=== PATIENT | female | born 2000 | race African-American/Black ===

== ENCOUNTER 2021-02-18 08:56 | Emergency (ER) | payer OTHER ==
[2021-02-18] MEDS ORDERED: Acetaminophen 500 MG TAB ONE (09:43)
== END 2021-02-18 10:23 | disposition home or self-care (01) ==
LOC: CSHERS 08:56
DX: O99.891 Other specified diseases and conditions complicating pregnancy (principal); R20.2 Paresthesia of skin; Z3A.37 37 weeks gestation of pregnancy
CPT/HCPCS: 93005

== ENCOUNTER 2021-03-15 14:54 | Day surgery (SDC) | payer OTHER ==
[2021-03-15] MEDS ORDERED: hydrALAZINE 20 MG/ML VIAL SLOW IVP PRN (17:44)
== END 2021-03-15 17:30 | disposition home health service (06) ==
LOC: CSHLD/OP 14:54
PROVIDERS: ATTEND Family Medicine
DX: O99.891 Other specified diseases and conditions complicating pregnancy (principal); R10.9 Unspecified abdominal pain; Z3A.36 36 weeks gestation of pregnancy
CPT/HCPCS: 99283

== ENCOUNTER 2021-04-02 12:39 | Outpatient (CLI) | payer OTHER ==
[2021-04-02 20:56] LABS: SARS-CoV-2 PCR by NAA Not Detected (NotDetected)
== END 2021-04-02 12:40 | disposition home or self-care (01) ==
LOC: CSHLAB 12:39
PROVIDERS: ATTEND Family Medicine
DX: Z20.822 Contact with and (suspected) exposure to COVID-19 (principal)
CPT/HCPCS: 87635; U0003; U0005

== ENCOUNTER 2021-04-06 19:30 | Inpatient (IN) | payer OTHER ==
[2021-04-07] MEDS ORDERED: Promethazine HCl 25 MG/ML VIAL IM PRN ×2 (02:48→13:52)
[2021-04-07] MEDS ORDERED: HYDROcodone/Acetaminophen 5/325 mg Tablet PO PRN (02:48)
[2021-04-07] MEDS ORDERED: Butorphanol Tartrate 1 MG/ML VIAL SLOW IVP PRN (02:48)
[2021-04-07] MEDS ORDERED: Methylergonovine 0.2 MG/ML VIAL IM PRN (02:48)
[2021-04-07] MEDS ORDERED: Lidocaine 1% (PF) 30 ML VIAL SC PRN (02:48)
[2021-04-07] MEDS ORDERED: Ibuprofen 800 MG TAB PO PRN (02:48)
[2021-04-07] MEDS ORDERED: Ondansetron PF 4 MG/2 ML Vial IVP PRN ×2 (02:48→13:52)
[2021-04-07] MEDS ORDERED: hydrALAZINE 20 MG/ML VIAL SLOW IVP PRN (02:48)
[2021-04-07] MEDS ORDERED: NS w/ Oxytocin 30 units 500 ML IV SCH ×2 (02:48)
[2021-04-07] MEDS ORDERED: Carboprost 250 MCG/ML AMP IM PRN (02:48)
[2021-04-07] MEDS ORDERED: Diphenoxylate HCl/Atropine Tablet PO PRN (02:48)
[2021-04-07] MEDS ORDERED: Misoprostol 200 MCG TAB PR PRN (02:48)
[2021-04-07] MEDS ORDERED: NS w/ Oxytocin 30 units 500 ML IVPB SCH (02:48)
[2021-04-07 02:50] VITALS: BMI 33.3
[2021-04-07] MEDS ORDERED: Penicillin G Potassium 5 MILL.UNITS in Sodium Chloride 0.9% 100 ML IVPB SCH (03:00)
[2021-04-07] MEDS: Lactated Ringer's 1,000 ML IV SCH ×2 (03:54→17:12)
[2021-04-07] MEDS: Misoprostol 100 MCG TAB VAG SCH ×2 (04:00→07:44)
[2021-04-07 04:23] LABS: Hemoglobin 10.8 g/dL (12.0-15.5); Mean Corpuscular HGB CONC 33.5 g/dL (32.0-36.0); Mean Corpuscular Hemoglobin 30.1 pg (27.0-33.0); Mean Corpuscular Volume 89.7 fl (81.6-98.3); Mean Platelet Volume 10.4 fl (7.4-10.4); Platelet Count 255 10x3/uL (150-450); RBC Distribution Width 14.6 % (11.5-14.5); Red Blood Cell (RBC) Count 3.59 10x6/uL (3.90-5.03); White Blood Cell (WBC) Count 9.7 10x3/uL (3.5-10.5)
[2021-04-07 04:56] LABS: Hep B Surf Ag Non-Reactive S/CO (NonReactive)
[2021-04-07 04:57] LABS: Syphilis Antibody Nonreactive (Nonreactive); Syphilis Antibody Index 0.04 S/CO (<1.00 Non-Reactive)
[2021-04-07 05:02] LABS: HBSAg Index 0.18 S/CO (0-0.99)
[2021-04-07] MEDS: Penicillin G 2.5 MILL.units 2.5 MILL.UNITS in Premix Bag 1 BAG IVPB SCH ×4 (08:54→21:33)
[2021-04-07] MEDS ORDERED: Fentanyl 4 mcg/Bup 0.1% Cadd 100 ML ONE (13:04)
[2021-04-07] MEDS ORDERED: diphenhydrAMINE 50 MG/ML VIAL IVP PRN (13:52)
[2021-04-07] MEDS ORDERED: ePHEDrine 50 MG/ML VIAL SLOW IVP PRN (13:52)
[2021-04-07] MEDS ORDERED: Naloxone HCl 0.4 mg/ml Vial IVP PRN ×2 (13:52)
[2021-04-07] MEDS ORDERED: Acetaminophen 325 MG TAB PO PRN (13:52)
[2021-04-07] MEDS ORDERED: Eucerin (Mineral Oil/Petrolatum,White) 30 gm Jar TOP PRN (13:52)
[2021-04-07] MEDS ORDERED: Lactated Ringer's 500 ML IV PRN (13:52)
[2021-04-07] MEDS ORDERED: Fentanyl 4 mcg/Bupivacaine 0.1% Cassette 100 ML EPIDURAL SCH (14:00)
[2021-04-07] MEDS ORDERED: Communication Order-Pharmacy FS SCH (14:00)
[2021-04-08] MEDS ORDERED: NS w/ Oxytocin 30 units 500 ML IV SCH (00:53)
[2021-04-08] MEDS ORDERED: Ondansetron PF 4 MG/2 ML Vial IVP PRN (00:53)
[2021-04-08] MEDS ORDERED: diphenhydrAMINE 25 MG CAP PO PRN (00:53)
[2021-04-08] MEDS ORDERED: hydrALAZINE 20 MG/ML VIAL SLOW IVP PRN (00:53)
[2021-04-08] MEDS ORDERED: Lanolin Ointment 7 GM TUBE TOP PRN (00:53)
[2021-04-08] MEDS ORDERED: Benzocaine-Menthol 82.5 ML CAN TOP PRN (00:53)
[2021-04-08] MEDS ORDERED: Preparation H Ointment 28 GM TUBE PR PRN (00:53)
[2021-04-08] MEDS ORDERED: Milk Of Magnesia 30 ML UDCUP PO PRN (00:53)
[2021-04-08] MEDS ORDERED: HYDROcodone/Acetaminophen 5/325 mg Tablet PO PRN ×2 (00:53)
[2021-04-08] MEDS ORDERED: Promethazine HCl 25 MG/ML VIAL IM PRN (00:53)
[2021-04-08] MEDS ORDERED: Bisacodyl 10 MG SUPP PR PRN (00:53)
[2021-04-08] MEDS: Ibuprofen 800 MG TAB PO SCH ×3 (06:47→23:04)
[2021-04-08] MEDS: Misoprostol 100 MCG TAB VAG SCH (08:39)
[2021-04-08] MEDS: Lactated Ringer's 1,000 ML IV SCH (08:40)
[2021-04-08] MEDS: Penicillin G 2.5 MILL.units 2.5 MILL.UNITS in Premix Bag 1 BAG IVPB SCH (08:40)
[2021-04-08] MEDS: Prenatal Vitamin 1 TAB PO SCH (08:41)
[2021-04-08] MEDS: Docusate Calcium (SURFAK) 240 MG CAP PO SCH ×2 (08:41→23:05)
[2021-04-08] MEDS: Ferrous Sulfate 325 MG TAB PO SCH ×2 (08:43→17:52)
[2021-04-08] MEDS ORDERED: Adacel (T-DAP) 0.5 ML SYRINGE IM ONE (09:00)
[2021-04-09] MEDS: Ibuprofen 800 MG TAB PO SCH ×2 (06:28→14:09)
[2021-04-09 07:48] VITALS: BP 104/54; TEMP 98.6
[2021-04-09] MEDS: Prenatal Vitamin 1 TAB PO SCH (08:32)
[2021-04-09] MEDS: Docusate Calcium (SURFAK) 240 MG CAP PO SCH (08:32)
[2021-04-09] MEDS: Ferrous Sulfate 325 MG TAB PO SCH (08:33)
== END 2021-04-09 14:45 | disposition home or self-care (01) | DRG 807 ==
LOC: CSHPP 04-07 01:05 → UNDOADMIN 04-07 02:38 → CSHLD 04-07 02:38 → CSHPP 04-08 02:20 → CSHLD 04-08 02:20 → CSHPP 04-08 02:24
PROVIDERS: ADMIT Family Medicine; ATTEND Family Medicine
PROC: 10E0XZZ Delivery of Products of Conception, External Approach (ICD-10-PCS; principal; 2021-04-07)
PROC: 10907ZC Drainage of Amniotic Fluid, Therapeutic from Products of Conception, Via Natural or Artificial Opening (ICD-10-PCS; 2021-04-07)
PROC: 3E0P7VZ Introduction of Hormone into Female Reproductive, Via Natural or Artificial Opening (ICD-10-PCS; 2021-04-07)
PROC: 3E033VJ Introduction of Other Hormone into Peripheral Vein, Percutaneous Approach (ICD-10-PCS; 2021-04-07)
DX: O99.824 Streptococcus B carrier state complicating childbirth (principal); Z37.0 Single live birth; Z3A.39 39 weeks gestation of pregnancy; Z20.822 Contact with and (suspected) exposure to COVID-19
CPT/HCPCS: 36415; 51701; 51702; 85027; 86780; 86850; 86900; 86901; 87340; J2540; J2590; J3490

== ENCOUNTER 2021-04-10 22:44 | Emergency (ER) | payer OTHER ==
[2021-04-10 23:24] LABS: #Eosinphils 0.1 10x3/uL (0.0-0.5); #Monocytes 0.6 10x3/uL (0.0-1.1); #Neutrophils 6.9 10x3/uL (1.5-8.4); %Basophils 0.2 % (0.0-2.0); %Eosinophils 1.1 % (0.0-6.0); %Lymphocytes 24.8 % (18.0-47.0); %Monocytes 6.2 % (0.0-10.0); %Neutrophils 67.2 % (40.0-75.0); Mean Corpuscular HGB CONC 33.5 g/dL (32.0-36.0); Mean Corpuscular Hemoglobin 30.3 pg (27.0-33.0); Mean Corpuscular Volume 90.4 fl (81.6-98.3); Mean Platelet Volume 10.1 fl (7.4-10.4); Platelet Count 324 10x3/uL (150-450); RBC Distribution Width 14.6 % (11.5-14.5); Red Blood Cell (RBC) Count 3.63 10x6/uL (3.90-5.03); White Blood Cell (WBC) Count 10.2 10x3/uL (3.5-10.5)
[2021-04-10 23:43] LABS: ALT (SGPT) 8 U/L (8-55); AST (SGOT) 18 U/L (5-34); Albumin 3.3 g/dL (3.5-5.0); Alkaline Phosphatase 132 U/L (40-100); Anion Gap 12 mmol/L (10-20); BUN (Urea Nitrogen) 5 mg/dL (7.0-18.7); Bilirubin, Total 0.3 mg/dL (0.2-1.2); Calc. Creatinine Clearance 0 mL/min (70-130); Calcium 9.4 mg/dL (7.8-10.44); Carbon Dioxide 24 mmol/L (22-29); Chloride 108 mmol/L (98-107); Globulin 3.3 g/dL (2.4-3.5); Glucose 89 mg/dL (70-105); Potassium 3.7 mmol/L (3.5-5.1); Protein, Total 6.6 g/dL (6.0-8.3); Sodium 140 mmol/L (136-145)
[2021-04-11] MEDS ORDERED: Misoprostol 200 MCG TAB ONE (00:28)
== END 2021-04-11 00:45 | disposition home or self-care (01) ==
LOC: CSHERS 22:44
DX: O72.2 Delayed and secondary postpartum hemorrhage (principal)
CPT/HCPCS: 76856; 80053; 85025

== ENCOUNTER 2022-06-08 16:54 | Emergency (ER) | payer OTHER ==
[2022-06-08 17:43] LABS: #Monocytes 0.3 10x3/uL (0.0-1.1); #Neutrophils 3.6 10x3/uL (1.5-8.4); %Basophils 0.3 % (0.0-2.0); %Eosinophils 0.3 % (0.0-6.0); %Lymphocytes 33.8 % (18.0-47.0); %Monocytes 5.4 % (0.0-10.0); Hemoglobin 11.3 g/dL (12.0-15.5); Mean Corpuscular HGB CONC 34.2 g/dL (32.0-36.0); Mean Corpuscular Hemoglobin 29.4 pg (27.0-33.0); Mean Corpuscular Volume 85.9 fl (81.6-98.3); Mean Platelet Volume 9.2 fl (7.4-10.4); Platelet Count 378 10x3/uL (150-450); RBC Distribution Width 13.6 % (11.5-14.5); Red Blood Cell (RBC) Count 3.84 10x6/uL (3.90-5.03)
[2022-06-08 17:58] LABS: Bilirubin Neg (Negative); Blood, Urine Negative (Negative); Clarity Clear (Clear); Glucose, Urine (Dipstick) Normal (Negative); Ketone, Urine Negative (Negative); Leukocyte 500 (Negative); Nitrite Negative (Negative); Protein, Urine (Dipstick) Negative (Neg-Trace); Urobilinogen Normal mg/dL (Less than 2)
[2022-06-08 18:01] LABS: BHCG - Serum Negative (NEGATIVE); Pregs Control Background? CLEAR/WHITE (CLR/WHITE); Pregs Control Bar Appear? YES (CONTROL BAR)
[2022-06-08 18:03] LABS: ALT (SGPT) 6 U/L (8-55); AST (SGOT) 13 U/L (5-34); Albumin 4.1 g/dL (3.5-5.0); Alkaline Phosphatase 50 U/L (40-110); Anion Gap 10 mmol/L (10-20); BUN (Urea Nitrogen) 7 mg/dL (7.0-18.7); Bilirubin, Total 0.3 mg/dL (0.2-1.2); Calc. Creatinine Clearance 0 mL/min (70-130); Calcium 9.7 mg/dL (7.8-10.44); Carbon Dioxide 24 mmol/L (22-29); Chloride 106 mmol/L (98-107); Estimated GFR 114; Globulin 2.9 g/dL (2.4-3.5); Glucose 117 mg/dL (70-105); Potassium 3.2 mmol/L (3.5-5.1); Sodium 137 mmol/L (136-145)
[2022-06-08 18:06] LABS: Bacteria/HPF Rare-Few HPF (None Seen); RBC/HPF None Seen HPF (0-3); Squamous Epithelial 0-3 HPF (0-3); WBC/HPF 0-3 HPF (0-3)
== END 2022-06-08 19:15 | disposition home or self-care (01) ==
LOC: CSHERS 16:54
DX: N39.0 Urinary tract infection, site not specified (principal)
CPT/HCPCS: 36415; 80053; 81003; 81015; 84703; 85025; 99284

== ENCOUNTER 2022-09-11 21:51 | Emergency (ER) | payer OTHER ==
[2022-09-11] MEDS ORDERED: Bacitracin 1 PK ONE (22:36)
[2022-09-11] MEDS ORDERED: Ketorolac Tromethamine 30 MG/ML VIAL ONE (22:37)
[2022-09-11] MEDS ORDERED: Amoxicillin/Potassium Clav 875 MG TAB ONE (22:40)
== END 2022-09-11 23:29 | disposition home or self-care (01) ==
LOC: CSHERS 21:51
DX: O9A.211 Injury, poisoning and certain other consequences of external causes complicating pregnancy, first trimester (principal); S51.852A Open bite of left forearm, initial encounter; S51.812A Laceration without foreign body of left forearm, initial encounter; W54.0XXA Bitten by dog, initial encounter; Z3A.01 Less than 8 weeks gestation of pregnancy
CPT/HCPCS: 96372; J1885

== ENCOUNTER 2022-10-08 15:25 | Emergency (ER) | payer OTHER ==
[2022-10-08] MEDS ORDERED: Metoclopramide HCl 10 MG/2 ML VIAL ONE (16:12)
[2022-10-08] MEDS ORDERED: diphenhydrAMINE 50 MG/ML VIAL ONE (16:13)
== END 2022-10-08 17:40 | disposition home or self-care (01) ==
LOC: CSHERS 15:25
DX: O99.891 Other specified diseases and conditions complicating pregnancy (principal); R51.9 Headache, unspecified; Z3A.10 10 weeks gestation of pregnancy
CPT/HCPCS: 70450; 96374; 96375; J1200; J2765

== ENCOUNTER 2022-10-15 21:38 | Emergency (ER) | payer OTHER ==
[2022-10-15] MEDS ORDERED: Amoxicillin/Potassium Clav 875 MG TAB ONE (22:23)
== END 2022-10-15 22:24 | disposition home or self-care (01) ==
LOC: CSHERS 21:38
DX: J01.90 Acute sinusitis, unspecified (principal)
CPT/HCPCS: 99283

== ENCOUNTER 2022-12-26 10:52 | Outpatient (CLI) | payer OTHER | END 2022-12-26 10:53 | disposition home or self-care (01) | LOC: CSHULT 10:52 | PROVIDERS: ATTEND Family Medicine | DX: Z34.82 Encounter for supervision of other normal pregnancy, second trimester (principal); Z3A.21 21 weeks gestation of pregnancy | CPT/HCPCS: 76805 ==

== ENCOUNTER 2023-03-09 09:01 | Day surgery (SDC) | payer OTHER ==
[2023-03-09 09:54] VITALS: BMI 31.8
[2023-03-09 11:36] LABS: Bilirubin Neg (Negative); Blood, Urine Negative (Negative); Clarity Slightly Cloudy (Clear); Glucose, Urine (Dipstick) Normal (Negative); Ketone, Urine Negative (Negative); Leukocyte 25 (Negative); Nitrite Negative (Negative); Protein, Urine (Dipstick) Negative (Neg-Trace); Specific Gravity, Urine 1.005 (1.005-1.030); Urobilinogen Normal mg/dL (Less than 2)
[2023-03-09 11:42] LABS: CAUTI Indications for Culture Pregnancy
[2023-03-09 11:43] LABS: Bacteria/HPF 3+ HPF (None Seen); RBC/HPF 0-3 HPF (0-3)
[2023-03-09 11:44] LABS: Urine Culture Reflex Yes Yes
== END 2023-03-09 13:19 | disposition home or self-care (01) ==
LOC: CSHLD/OP 09:01
PROVIDERS: ATTEND Family Medicine
DX: O26.893 Other specified pregnancy related conditions, third trimester (principal); R10.9 Unspecified abdominal pain; Z79.899 Other long term (current) drug therapy; M54.50 Low back pain, unspecified; Z3A.32 32 weeks gestation of pregnancy
CPT/HCPCS: 81001; 87086; 87480; 87510; 87660; 99283

== ENCOUNTER 2023-03-30 08:21 | Day surgery (SDC) | payer BC, OTHER ==
[2023-03-30 09:07] VITALS: BMI 32.1
[2023-03-30] MEDS ORDERED: hydrALAZINE 20 MG/ML VIAL SLOW IVP PRN (09:34)
[2023-03-30 10:05] LABS: SARS-CoV-2 NAA Rapid Test Not Detected (NotDetected)
[2023-03-30 10:06] LABS: Creatinine, Urine 49.66 mg/dL (47-110); Protein, Urine Random Quant Less than 10 mg/dL (1-14)
[2023-03-30 10:14] LABS: #Monocytes 0.7 10x3/uL (0.0-1.1); #Neutrophils 9.9 10x3/uL (1.5-8.4); %Basophils 0.2 % (0.0-2.0); %Eosinophils 0.3 % (0.0-6.0); %Lymphocytes 11.7 % (18.0-47.0); %Monocytes 5.7 % (0.0-10.0); %Neutrophils 81.5 % (40.0-75.0); Hemoglobin 8.5 g/dL (12.0-15.5); Mean Corpuscular HGB CONC 32.9 g/dL (32.0-36.0); Mean Corpuscular Hemoglobin 28.2 pg (27.0-33.0); Mean Corpuscular Volume 85.7 fl (81.6-98.3); Mean Platelet Volume 9.4 fl (7.4-10.4); Platelet Count 330 10x3/uL (150-450); RBC Distribution Width 12.8 % (11.5-14.5); Red Blood Cell (RBC) Count 3.01 10x6/uL (3.90-5.03); White Blood Cell (WBC) Count 12.2 10x3/uL (3.5-10.5)
[2023-03-30 10:20] LABS: ALT (SGPT) Less than 6 U/L (8-55); AST (SGOT) 11 U/L (5-34); Albumin 3.1 g/dL (3.5-5.0); Alkaline Phosphatase 100 U/L (40-110); Anion Gap 12 mmol/L (10-20); BUN (Urea Nitrogen) Less than 4 mg/dL (7.0-18.7); Bilirubin, Total 0.3 mg/dL (0.2-1.2); Calc. Creatinine Clearance 188 mL/min (70-130); Calcium 8.2 mg/dL (7.8-10.44); Carbon Dioxide 20 mmol/L (22-29); Chloride 108 mmol/L (98-107); Estimated GFR 131; Globulin 2.9 g/dL (2.4-3.5); Glucose 117 mg/dL (70-105); Potassium 3.1 mmol/L (3.5-5.1); Sodium 137 mmol/L (136-145)
[2023-03-30] MEDS ORDERED: Potassium Chloride 20 MEQ TAB PO SCH (11:00)
== END 2023-03-30 11:11 | disposition home or self-care (01) ==
LOC: CSHLD/OP 08:21
PROVIDERS: ATTEND Family Medicine
DX: O99.283 Endocrine, nutritional and metabolic diseases complicating pregnancy, third trimester (principal); E87.6 Hypokalemia; O99.891 Other specified diseases and conditions complicating pregnancy; R51.9 Headache, unspecified; R53.81 Other malaise; Z79.899 Other long term (current) drug therapy; Z3A.35 35 weeks gestation of pregnancy; Z20.822 Contact with and (suspected) exposure to COVID-19
CPT/HCPCS: 36415; 80053; 82570; 84156; 85025; 99285